=== PATIENT | female | born 1995 | race Two or more races ===

== ENCOUNTER 2019-05-27 10:58 | Inpatient (IN) | payer OTHER ==
[~2019-05-27] VITALS: Ht 149.9 cm; Wt 70.5 kg
[2019-05-27 11:10] VITALS: BP 127/71
[2019-05-27] MEDS ORDERED: OXYTOCIN 30U/ 0.9% NaCL 500ML 500 ML IV ONE (11:29)
[2019-05-27] MEDS ORDERED: OXYTOCIN 30U/ 0.9% NaCL 500ML 500 ML IV PRN (11:29)
[2019-05-27] MEDS ORDERED: D5%-LACTATED RINGERS 1,000 ML IV SCH (11:29)
[2019-05-27] MEDS ORDERED: SODIUM CITRATE/CITRIC ACID 15 ML UDC PO PRN (11:30)
[2019-05-27] MEDS ORDERED: METOCLOPRAMIDE 5 MG/ML, 2ML IVPush PRN (11:30)
[2019-05-27] MEDS ORDERED: CALCIUM CARBONATE 500 MG TAB.CHEW PO PRN (11:30)
[2019-05-27] MEDS ORDERED: ONDANSETRON 2MG/ML, 2ML IVPush PRN ×2 (11:30→13:30)
[2019-05-27] MEDS ORDERED: FENTANYL PF 100 MCG/2ML IVPush PRN (11:30)
[2019-05-27] MEDS ORDERED: ALUMINUM/MAG/SIMETHICONE 30 ML UDC PO PRN (11:30)
[2019-05-27] MEDS ORDERED: FENTANYL/BUPIV./NS/PF 250 ML EPIDCONT SCH ×2 (11:32→13:23)
[2019-05-27] MEDS ORDERED: LIDOCAINE 1%, 20ML ONE (11:38)
[2019-05-27] MEDS ORDERED: NEWBORN KIT ONE (11:38)
[2019-05-27] MEDS ORDERED: MISOPROSTOL 200 MCG TABLET ONE (11:39)
[2019-05-27] MEDS ORDERED: OXYTOCIN 30U/ 0.9% NaCL 500ML 500 ML ONE ×2 (11:39→21:03)
[2019-05-27] MEDS ORDERED: FENTANYL PF 100 MCG/2ML ONE (11:46)
[2019-05-27] MEDS: LACTATED RINGERS 1,000 ML IV SCH ×2 (11:49→15:16)
[2019-05-27] MEDS ORDERED: LACTATED RINGERS 1,000 ML IVBOLUS PRN ×2 (12:00→13:30)
[2019-05-27] MEDS ORDERED: FENTANYL PF 500 MCG, BUPIVACAINE/PF 0.5%, 30ML 62.5 ML in SODIUM CHLORIDE 0.9% 177.5 ML EPIDCONT SCH (12:00)
[2019-05-27 12:01] LABS: BASOPHILS # (AUTO) 0.02 x10^3/uL (0-0.1); BASOPHILS % (AUTO) 0 % (0-1); EOSINOPHILS # (AUTO) 0.02 x10^3/uL (0-0.4); EOSINOPHILS % (AUTO) 0 % (1-7); LYMPHOCYTES # (AUTO) 1.66 x10^3/uL (1-3.4); LYMPHOCYTES % (AUTO) 13 % (22-44); MD NO; MEAN CORPUSCULAR HEMOGLOBIN 30.5 pg (27.0-34.8); MEAN CORPUSCULAR HGB CONC 33.3 g/dL (32.4-35.8); MEAN CORPUSCULAR VOLUME 91.6 fL (80-100); MEAN PLATELET VOLUME 8.8 fL (7.4-10.4); MONOCYTES # (AUTO) 0.49 x10^3/uL (0.2-0.8); MONOCYTES % (AUTO) 4 % (2-9); NEUTROPHILS # (AUTO) 10.33 x10^3/uL (1.8-6.8); NEUTROPHILS % (AUTO) 83 % (42-75); PLATELET COUNT 234 x10^3/uL (130-400); RED BLOOD COUNT 4.37 x10^6/uL (3.82-5.3); RED CELL DISTRIBUTION WIDTH 14.8 % (9.6-15.2)
[2019-05-27] MEDS ORDERED: PREN1TAB60 PO (12:08)
[2019-05-27] MEDS ORDERED: BUPIVACAINE 0.25% ONE (12:13)
[2019-05-27] MEDS ORDERED: LIDOCAINE/PF 1.5%-EPI 1:200K, 30ML ONE (12:14)
[2019-05-27] MEDS: OXYTOCIN 30U/ 0.9% NaCL 500ML 500 ML IV SCH ×2 (12:57→22:57)
[2019-05-27] MEDS ORDERED: MISOPROSTOL 200 MCG TABLET PR PRN (13:00)
[2019-05-27] MEDS ORDERED: LACTATED RINGERS 1,000 ML IV SCH (13:23)
[2019-05-27] MEDS ORDERED: DIPHENHYDRAMINE 50 MG/ML, 1ML IVPush PRN (13:30)
[2019-05-27] MEDS ORDERED: EPHEDRINE 50 MG/ML, 1ML IVPush PRN (13:30)
[2019-05-27] MEDS ORDERED: NALOXONE 0.4 MG/ML, 1ML IVPush PRN (13:30)
[2019-05-27] MEDS ORDERED: OXYcodone/APAP 5/325MG TABLET ONE (21:02)
[2019-05-27] MEDS ORDERED: IBUPROFEN 600 MG TABLET ONE (21:02)
[2019-05-27] MEDS: OXYcodone/APAP 5/325MG TABLET PO PRN (21:28)
[2019-05-27] MEDS: IBUPROFEN 600 MG TABLET PO PRN (21:28)
[2019-05-27 22:10] VITALS: BP 118/77
[2019-05-28 03:28] LABS: MEAN CORPUSCULAR HEMOGLOBIN 30.7 pg (27.0-34.8); MEAN CORPUSCULAR HGB CONC 33.5 g/dL (32.4-35.8); MEAN CORPUSCULAR VOLUME 91.8 fL (80-100); MEAN PLATELET VOLUME 9.2 fL (7.4-10.4); PLATELET COUNT 198 x10^3/uL (130-400); RED BLOOD COUNT 3.89 x10^6/uL (3.82-5.3); RED CELL DISTRIBUTION WIDTH 14.5 % (9.6-15.2)
[2019-05-28 03:42] LABS: BASOPHILS # (AUTO) 0.01 x10^3/uL (0-0.1); BASOPHILS % (AUTO) 0 % (0-1); EOSINOPHILS # (AUTO) 0.02 x10^3/uL (0-0.4); EOSINOPHILS % (AUTO) 0 % (1-7); LYMPHOCYTES # (AUTO) 1.88 x10^3/uL (1-3.4); LYMPHOCYTES % (AUTO) 9 % (22-44); MD SCAN; MONOCYTES # (AUTO) 0.76 x10^3/uL (0.2-0.8); MONOCYTES % (AUTO) 3 % (2-9); NEUTROPHILS # (AUTO) 19.36 x10^3/uL (1.8-6.8); NEUTROPHILS % (AUTO) 88 % (42-75)
[2019-05-28] MEDS: IBUPROFEN 600 MG TABLET PO PRN ×3 (03:52→18:03)
[2019-05-28] MEDS: OXYcodone/APAP 5/325MG TABLET PO PRN ×4 (03:52→21:59)
[2019-05-28 04:00] VITALS: BP 108/68
[2019-05-28] MEDS: OXYTOCIN 30U/ 0.9% NaCL 500ML 500 ML IV SCH ×2 (08:57→18:57)
[2019-05-28 09:47] VITALS: BP 105/69
[2019-05-28] MEDS: DOCUSATE 100 MG CAPSULE PO PRN ×2 (10:50→21:59)
[2019-05-28] MEDS: PRENATAL VIT/IRON/FA 1 EACH TABLET PO SCH (10:50)
[2019-05-28 14:00] VITALS: BP 106/70
[2019-05-28 19:40] VITALS: BP 122/74
[2019-05-29] MEDS: IBUPROFEN 600 MG TABLET PO PRN ×3 (00:06→12:01)
[2019-05-29] MEDS: OXYTOCIN 30U/ 0.9% NaCL 500ML 500 ML IV SCH (04:57)
[2019-05-29] MEDS: PRENATAL VIT/IRON/FA 1 EACH TABLET PO SCH (07:41)
[2019-05-29] MEDS: DOCUSATE 100 MG CAPSULE PO PRN (07:41)
[2019-05-29 08:15] VITALS: BP 132/84
[2019-05-29] MEDS ORDERED: IBUP-1222 PO (13:19)
== END 2019-05-29 14:10 | disposition home or self-care (01) | DRG 807 ==
LOC: LDOP 10:58 → MERGE 10:58 → LDIP 12:07 → 2NW 21:15
PROVIDERS: ADMIT Obstetrics & Gynecology; ATTEND Obstetrics & Gynecology
PROC: 10E0XZZ Delivery of Products of Conception, External Approach (ICD-10-PCS; principal; 2019-05-27)
PROC: 0KQM0ZZ Repair Perineum Muscle, Open Approach (ICD-10-PCS; 2019-05-27)
PROC: 3E0R3BZ Introduction of Anesthetic Agent into Spinal Canal, Percutaneous Approach (ICD-10-PCS; 2019-05-27)
PROC: 00HU33Z Insertion of Infusion Device into Spinal Canal, Percutaneous Approach (ICD-10-PCS; 2019-05-27)
DX: O70.1 Second degree perineal laceration during delivery (principal); Z37.0 Single live birth; Z3A.38 38 weeks gestation of pregnancy
CPT/HCPCS: 36415; J2790; S0020; 85025; 85461; 86850; 86870; 86900; 86922; 86923; G0378; J3010; J2590; J7050; J7120

== ENCOUNTER 2020-07-17 06:17 | Emergency (ER) | payer OTHER ==
[~2020-07-17] VITALS: Ht 149.9 cm; Wt 57.6 kg
[~2020-07-17 06:17] MED LIST: IBUP-1222 PO; PREN1TAB60 PO
[2020-07-17 06:21] VITALS: BP 100/76
--- NOTE | 2020-07-17 06:48 | NUR ---
PATIENT AMBULATED TO BATHROOM FOR URINE SAMPLE. UA COLLECTED, SAFETY MEASURES IN PLACE. NO S/S OF DISTRESS
[2020-07-17 07:01] LABS: BASOPHILS # (AUTO) 0.02 x10^3/uL (0-0.1); BASOPHILS % (AUTO) 0 % (0-1); EOSINOPHILS # (AUTO) 0.09 x10^3/uL (0-0.4); EOSINOPHILS % (AUTO) 1 % (1-7); LYMPHOCYTES # (AUTO) 1.98 x10^3/uL (1-3.4); LYMPHOCYTES % (AUTO) 22 % (22-44); MD NO; MEAN CORPUSCULAR HEMOGLOBIN 30.2 pg (27.0-34.8); MEAN CORPUSCULAR VOLUME 91.5 fL (80-100); MEAN PLATELET VOLUME 7.6 fL (7.4-10.4); MONOCYTES # (AUTO) 0.26 x10^3/uL (0.2-0.8); MONOCYTES % (AUTO) 3 % (2-9); NEUTROPHILS # (AUTO) 6.77 x10^3/uL (1.8-6.8); NEUTROPHILS % (AUTO) 74 % (42-75); PLATELET COUNT 246 x10^3/uL (130-400); RED CELL DISTRIBUTION WIDTH 13.7 % (9.6-15.2)
--- NOTE | 2020-07-17 07:01 | NUR ---
[facility]AR RECEIVED FOR TRANSFER OF CARE AT PATIENT BEDSIDE.
[2020-07-17 07:13] LABS: ALANINE AMINOTRANSFERASE 13 U/L (12-78); ALBUMIN 3.1 g/dL (3.4-5.0); ANION GAP 7 mmol/L (5-15); CALCIUM 8.4 mg/dL (8.5-10.1); CHLORIDE 109 mmol/L (98-107); CREATININE 0.57 mg/dL (0.55-1.02)
--- NOTE | 2020-07-17 07:19 | NUR ---
PT TO ULTRASOUND AT THIS TIME.
[2020-07-17 07:24] LABS: MICROSCOPIC INDICATED
[2020-07-17 07:30] LABS: ALKALINE PHOSPHATASE 73 U/L (45-117); BILIRUBIN,TOTAL 0.2 mg/dL (0.2-1.0); TOTAL PROTEIN 6.9 g/dL (6.4-8.2)
--- NOTE | 2020-07-17 10:22 | NUR ---
Patient given discharge instructions and they have confirmed that they understand the instructions. Patient ambulatory with steady gait.
== END 2020-07-17 10:23 | disposition home or self-care (01) ==
LOC: ED 09:22
DX: O20.0 Threatened abortion (principal); Z3A.12 12 weeks gestation of pregnancy
CPT/HCPCS: 36415; 76801; 80053; 81001; 84702; 85025; 86850; 86900; 96372; 99284; J2790; 36430; 99285

== ENCOUNTER 2020-11-19 09:49 | Outpatient (CLI) | payer OTHER ==
[~2020-11-19] VITALS: Ht 149.9 cm; Wt 68.1 kg
[2020-11-19 10:02] VITALS: BP 110/55
== END 2020-11-19 12:25 | disposition home or self-care (01) ==
LOC: LDOP 09:49
PROVIDERS: ATTEND Obstetrics & Gynecology
DX: O42.913 Preterm premature rupture of membranes, unspecified as to length of time between rupture and onset of labor, third trimester (principal); Z3A.30 30 weeks gestation of pregnancy
CPT/HCPCS: 59025; 84112

== ENCOUNTER 2020-12-30 01:26 | Inpatient (IN) | payer OTHER ==
[~2020-12-30] VITALS: Ht 149.9 cm; Wt 98.5 kg
[2020-12-30] MEDS ORDERED: FERR325T5 PO (01:50)
[2020-12-30 02:03] LABS: MICROSCOPIC NOT IND
[2020-12-30] MEDS ORDERED: OXYTOCIN 30U/ 0.9% NaCL 500ML 500 ML ONE (02:13)
[2020-12-30] MEDS ORDERED: NEWBORN KIT ONE (02:22)
[2020-12-30] MEDS ORDERED: METOCLOPRAMIDE 5 MG/ML, 2ML ONE (02:25)
[2020-12-30] MEDS ORDERED: SODIUM CITRATE/CITRIC ACID 15 ML UDC ONE (02:25)
[2020-12-30] MEDS ORDERED: LACTATED RINGERS 1,000 ML IVBOLUS ONE (02:30)
[2020-12-30 02:42] VITALS: BP 132/77
[2020-12-30 02:59] LABS: BASOPHILS % (AUTO) 0 % (0-1); EOSINOPHILS % (AUTO) 1 % (1-7); LYMPHOCYTES % (AUTO) 26 % (22-44); MD NO; MEAN CORPUSCULAR HEMOGLOBIN 30.3 pg (27.0-34.8); MEAN CORPUSCULAR HGB CONC 33.9 g/dL (32.4-35.8); MEAN PLATELET VOLUME 9.4 fL (7.4-10.4); MONOCYTES % (AUTO) 6 % (2-9); NEUTROPHILS % (AUTO) 66 % (42-75); PLATELET COUNT 178 x10^3/uL (130-400); RED CELL DISTRIBUTION WIDTH 15.2 % (9.6-15.2)
[2020-12-30] MEDS ORDERED: morphine SULFATE/PF 0.5 MG/ML, 10ML ONE (02:59)
[2020-12-30] MEDS ORDERED: KETOROLAC 30 MG/1 ML ONE (03:03)
[2020-12-30] MEDS ORDERED: SODIUM CHLORIDE 0.9% PF 10ML ONE (03:03)
[2020-12-30] MEDS ORDERED: ONDANSETRON 2MG/ML, 2ML ONE (03:03)
[2020-12-30] MEDS ORDERED: OXYTOCIN 10 UNITS/ML, 1ML ONE (03:03)
[2020-12-30] MEDS ORDERED: CEFAZOLIN 1,000 MG ONE (03:03)
[2020-12-30] MEDS ORDERED: DEXAMETHASONE 4 MG/ML, 1ML ONE (03:03)
[2020-12-30] MEDS ORDERED: DIPH,PERTUSS(ACELL),TET VAC/PF NC IM-VACC PRN (05:00)
[2020-12-30] MEDS ORDERED: ONDANSETRON 2MG/ML, 2ML IV PRN (05:00)
[2020-12-30] MEDS ORDERED: OXYcodone/APAP 5/325MG TABLET PO PRN (05:00)
[2020-12-30] MEDS ORDERED: MORPHINE SULFATE 4 MG/ML, 1ML IVPush PRN (05:00)
[2020-12-30] MEDS ORDERED: CARBOPROST TROMETHAMINE 250 MCG/ML, 1ML IM PRN (05:00)
[2020-12-30] MEDS ORDERED: CALCIUM CARBONATE 500 MG TAB.CHEW PO PRN (05:00)
[2020-12-30] MEDS ORDERED: BISACODYL 10 MG SUPP PR PRN (05:00)
[2020-12-30] MEDS ORDERED: METOCLOPRAMIDE 5 MG/ML, 2ML IV PRN (05:00)
[2020-12-30] MEDS ORDERED: GLYCERIN ADULT SUPP PR PRN (05:00)
[2020-12-30] MEDS ORDERED: MISOPROSTOL 200 MCG TABLET PR PRN (05:00)
[2020-12-30] MEDS ORDERED: METHYLERGONOVINE 0.2 MG/ML IM PRN (05:00)
[2020-12-30] MEDS ORDERED: ACETAMINOPHEN 325 MG TABLET PO PRN ×2 (05:00)
[2020-12-30] MEDS: OXYTOCIN 30U/ 0.9% NaCL 500ML 500 ML IV SCH ×2 (05:00→15:00)
[2020-12-30] MEDS: LACTATED RINGERS 1,000 ML IV SCH ×5 (05:00→21:00)
[2020-12-30 06:30] VITALS: BP 122/73
[2020-12-30 07:50] VITALS: BP 115/72
[2020-12-30] MEDS: PRENATAL VIT/IRON/FA 1 EACH TABLET PO SCH (09:00)
[2020-12-30] MEDS: KETOROLAC 30 MG/1 ML IV SCH ×3 (10:25→21:59)
[2020-12-30 12:00] VITALS: BP 119/70
[2020-12-30 12:12] LABS: BASOPHILS % (AUTO) 0 % (0-1); EOSINOPHILS % (AUTO) 0 % (1-7); LYMPHOCYTES % (AUTO) 6 % (22-44); MEAN CORPUSCULAR HEMOGLOBIN 30.2 pg (27.0-34.8); MEAN CORPUSCULAR HGB CONC 33.9 g/dL (32.4-35.8); MEAN PLATELET VOLUME 9.2 fL (7.4-10.4); MONOCYTES % (AUTO) 4 % (2-9); NEUTROPHILS % (AUTO) 89 % (42-75); PLATELET COUNT 174 x10^3/uL (130-400); RED BLOOD COUNT 3.87 x10^6/uL (3.82-5.3); RED CELL DISTRIBUTION WIDTH 15.2 % (9.6-15.2)
[2020-12-30 12:19] LABS: MD NO
[2020-12-30 16:15] VITALS: BP 109/69
[2020-12-30 20:40] VITALS: BP 104/60
[2020-12-31] VITALS: BP 104/60
[2020-12-31] MEDS: OXYTOCIN 30U/ 0.9% NaCL 500ML 500 ML IV SCH (01:00)
[2020-12-31] MEDS: LACTATED RINGERS 1,000 ML IV SCH ×2 (01:00→05:00)
[2020-12-31 04:10] VITALS: BP 106/64
[2020-12-31] MEDS: KETOROLAC 30 MG/1 ML IV SCH ×4 (04:17→22:20)
[2020-12-31 07:45] VITALS: BP 98/64
[2020-12-31] MEDS: DOCUSATE 100 MG CAPSULE PO PRN ×2 (09:34→22:20)
[2020-12-31] MEDS: SIMETHICONE 80 MG CHEW TAB PO PRN ×2 (09:35→22:20)
[2020-12-31] MEDS: PRENATAL VIT/IRON/FA 1 EACH TABLET PO SCH (09:35)
[2020-12-31 21:30] VITALS: BP 118/77
[2020-12-31] MEDS: OXYcodone/APAP 5/325MG TABLET PO PRN (22:21)
[2021-01-01] MEDS ORDERED: KETOROLAC 30 MG/1 ML ONE (04:03)
[2021-01-01] MEDS: KETOROLAC 30 MG/1 ML IV SCH (04:08)
[2021-01-01] MEDS: OXYcodone/APAP 5/325MG TABLET PO PRN ×2 (04:09→20:30)
[2021-01-01 08:00] VITALS: BP 102/51
[2021-01-01] MEDS: PRENATAL VIT/IRON/FA 1 EACH TABLET PO SCH (09:00)
[2021-01-01] MEDS: IBUPROFEN 600 MG TABLET PO PRN ×3 (10:53→23:12)
[2021-01-01] MEDS: DOCUSATE 100 MG CAPSULE PO PRN ×2 (11:43→20:30)
[2021-01-01 20:10] VITALS: BP 114/75
[2021-01-02] MEDS: IBUPROFEN 600 MG TABLET PO PRN ×2 (05:06→11:01)
[2021-01-02] MEDS ORDERED: IBUP-1222 PO (06:10)
[2021-01-02] MEDS ORDERED: OXYC1TAB14 PO (06:10)
[2021-01-02 07:50] VITALS: BP 106/70
[2021-01-02] MEDS: DOCUSATE 100 MG CAPSULE PO PRN (11:01)
[2021-01-02] MEDS: PRENATAL VIT/IRON/FA 1 EACH TABLET PO SCH (11:01)
== END 2021-01-02 12:39 | disposition home or self-care (01) | DRG 786 ==
LOC: LDOP 01:26 → LDIP 02:14 → 2NW 05:50
PROVIDERS: ADMIT Obstetrics & Gynecology; ATTEND Obstetrics & Gynecology
PROC: 10D00Z1 Extraction of Products of Conception, Low, Open Approach (ICD-10-PCS; principal; 2020-12-30)
DX: O30.043 Twin pregnancy, dichorionic/diamniotic, third trimester (principal); O60.14X0 Preterm labor third trimester with preterm delivery third trimester, not applicable or unspecified; O32.1XX2 Maternal care for breech presentation, fetus 2; Z37.2 Twins, both liveborn; Z3A.35 35 weeks gestation of pregnancy; Z20.822 Contact with and (suspected) exposure to COVID-19
CPT/HCPCS: 36415; 81003; 85025; 86592; 86850; 86870; 86900; 86922; 86923; 87086; 87635; 88307; G0378; J0690; J1100; J1885; J2274; J2405; J2590; J7120